=== PATIENT | female | born 1990 | race Caucasian/White ===

== ENCOUNTER 2021-11-13 11:37 | Emergency (ER) | payer BC ==
[~2021-11-13 11:37] MED LIST: AMLODIPINE BESYL5 MG PO; CARDIZEM30 MG PO; CATAPRES0.1 MG PO; FERROUS SULFAT324 MG PO; LISINOPRIL10 MG PO; LOPRESSOR 50 MG50 MG PO
[2021-11-13 13:45] LABS: HEMOGLOBIN 14.7 gm/dl (12.3-15.3); RED BLOOD COUNT 5.22 M/UL (4.00-5.10)
[2021-11-13 14:10] LABS: BUN/CREATININE RATIO 20 (0-10)
== END 2021-11-13 18:00 | disposition left against medical advice (07) ==
LOC: ER1 11:37
PROVIDERS: Physician Assistant
DX: R04.0 Epistaxis (principal); I10 Essential (primary) hypertension
CPT/HCPCS: 71045; 80053; 81001; 82550; 82553; 84484; 84703; 85025; 85610; 93005; 99283